=== PATIENT | female | born 1985 | race Hispanic/Latino ===

== ENCOUNTER 2023-08-20 13:57 | Emergency (ER) | payer OTHER, SELFPAY ==
[2023-08-20 13:57] VITALS: BMI 36.0
[2023-08-20 13:59] VITALS: BP 131/89
--- NOTE | 2023-08-20 14:44 | ED.GENMED ---
History of Present Illness
<Mary Huffman PA-C - Last Filed: 08/20/23 18:41>
General
Chief Complaint: Dizziness
Source: patient
Exam Limitations: none
Time Seen by Provider: 08/20/23 14:42
Nursing documentation reviewed up to this point in time: agreed with
Travel History
Have you had any contact with someone who has COVID-19?: No
Do you have any symptoms of coronavirus? Fever > 100 degrees, chills, cough, shortness of breath, sore throat, loss of taste or smell, muscle aches, or headache?: No
History of Present Illness
History of Present Illness:
This is a 38 y/o female with a PMH of hypothyroidism presenting to the emergency department today with dizziness that started yesterday morning. Patient states that when her symptoms started yesterday, she thought it was related to her not sleeping
all night before, however her symptoms persisted throughout the day and into today. Patient states that she describes a dizziness sensation as being intoxicated and also feels like she is unsteady on her feet. Patient states that she has never had
anything like this before. Patient states her symptoms worsen with movement or when she looks to her left or turns her head to the left. Patient also has a mild headache that started an hour ago. Patient denies any nausea or vomiting, chest pain,
shortness of breath, syncopal episodes. Patient denies any URI symptoms, cough. Patient denies any fevers or chills.
Review of Systems
<Mary Huffman PA-C - Last Filed: 08/20/23 18:41>
Review of Systems
All Other Systems: ROS reviewed and negative except as documented in HPI and ROS
Phy Exam
<Mary Huffman PA-C - Last Filed: 08/20/23 18:41>
Physical Exam
Physical Exam:
Vitals: Patient vital signs are stable
General: Patient is well-appearing, no acute distress
Skin: Warm skin dry, no rashes or lesions
Head: Normocephalic, atraumatic
Eyes: EOMs intact, no nystagmus. Sclera nonicteric.
Cardiac: Regular rate and rhythm, no murmurs
Pulm: Normal respiratory effort, no wheezes, rales, rhonchi
Abdomen: No abdominal tenderness
Neuro: AAOx3. CN II-XII. No focal neurologic deficits. Finger to nose, heel to shea testing intact.
Course
<Mary Huffman PA-C - Last Filed: 08/20/23 18:41>
Orders/Labs/Results
Orders:
Orders
08/20/23 14:03
EKG [Electrocardiogram (*1)] Urgent
Reason for Study: Vertigo / Dizzy
EKG- Treatment ONCE
08/20/23 15:13
Complete Blood Count/With Diff Urgent
Comprehensive Metabolic Panel Urgent
Free T4 Urgent
TSH Reflex To Free T4 Urgent
08/20/23 15:19
Acetaminophen [Tylenol] 650 mg PO NOW STA
08/20/23 15:30
Pt Eval And Treat Urgent
Activity Level: Ambulate
Abnormal Lab Results
08/20/23
15:13
MPV 11.8 H fL
(7.4-10.4)
Absolute Lymphs (auto) 4.1 H 10^3/uL
(1.2-3.4)
Absolute Monos (auto) 0.7 H 10^3/uL
(0.1-0.6)
Sodium 134 L mmol/L
(135-145)
TSH (Reflex) < 0.02 L uIU/ml
(0.47-4.68)
08/20/23 15:13
08/20/23 15:13
Vital Signs
Initial and Last Documented VS:
Initial Vital Signs
Temp Pulse Resp BP Pulse Ox
36.8 C 77 16 131/89 98
08/20/23 13:59 08/20/23 13:59 08/20/23 13:59 08/20/23 13:59 08/20/23 13:59
Last Documented Vital Signs
Temp Pulse Resp BP Pulse Ox
36.8 C 77 16 131/89 98
08/20/23 13:59 08/20/23 13:59 08/20/23 13:59 08/20/23 13:59 08/20/23 13:59
<Dorian Koch MD - Last Filed: 08/20/23 20:09>
Orders/Labs/Results
Orders:
Orders
08/20/23 14:03
EKG [Electrocardiogram (*1)] Urgent
Reason for Study: Vertigo / Dizzy
EKG- Treatment ONCE
08/20/23 15:13
Complete Blood Count/With Diff Urgent
Comprehensive Metabolic Panel Urgent
Free T4 Urgent
TSH Reflex To Free T4 Urgent
08/20/23 15:19
Acetaminophen [Tylenol] 650 mg PO NOW STA
08/20/23 15:30
Pt Eval And Treat Urgent
Activity Level: Ambulate
Abnormal Lab Results
08/20/23
15:13
MPV 11.8 H fL
(7.4-10.4)
Absolute Lymphs (auto) 4.1 H 10^3/uL
(1.2-3.4)
Absolute Monos (auto) 0.7 H 10^3/uL
(0.1-0.6)
Sodium 134 L mmol/L
(135-145)
TSH (Reflex) < 0.02 L uIU/ml
(0.47-4.68)
08/20/23 15:13
08/20/23 15:13
Vital Signs
Initial and Last Documented VS:
Initial Vital Signs
Temp Pulse Resp BP Pulse Ox
36.8 C 77 16 131/89 98
08/20/23 13:59 08/20/23 13:59 08/20/23 13:59 08/20/23 13:59 08/20/23 13:59
Last Documented Vital Signs
Temp Pulse Resp BP Pulse Ox
36.8 C 77 16 131/89 98
08/20/23 13:59 08/20/23 13:59 08/20/23 13:59 08/20/23 13:59 08/20/23 13:59
<Mary Huffman PA-C - Last Filed: 08/20/23 18:41>
MDM/Problems Addressed
Differential Diagnosis Includes:
Differentials include BPPV, vestibular neuritis, occipital migraine, CVA, anemia, arrhythmia,
MDM/Problems Addressed:
Dizziness
Chronic conditions affecting care:
Hypothyroidism, hypertension, prediabetes, PCOS
Acute Exacerbation and/or Progression of Chronic Illness:
Hypertension
<Mary Huffman PA-C - Last Filed: 08/20/23 18:41>
*Pulse Oximetry
Patient hypoxic: no
*Critical Care Note
Total Time (30-74mins, 75-104mins- exclusive of procedures): Not Applicable
Data Reviewed
Review of Other/Old Records Reveals: Records (No previous ER physician documentation) and Discharge Summary (No discharge summary in [facility] to review)
Source: patient
<Mary Huffman PA-C - Last Filed: 08/20/23 18:41>
Patient Management
Escalation/DeEscalation of care consider admission/obs:
This is a 38 y/o female with a PMH of hypothyroidism presenting to the emergency department today with dizziness that started yesterday morning. On exam, her neurological exam is unremarkable--she has no focal deficits and no nystagmus. Her EKG
demonstrates normal sinus rhythm. She is not anemic. Patient was evaluated by vestibular therapist and her symptoms resolved by the Cali maneuver. Patient feels well now. Patient was prescribed as clean as needed, patient agreement with plan.
Patient has a pamphlet for vestibular therapy follow-up. Patient stable for discharge.
ED Attending Note
<Mary Huffman PA-C - Last Filed: 08/20/23 18:41>
-
Portions of this chart may have been created with voice recognition software.� Occasional wrong word or��sound alike� substitutions may have occurred due to the inherent limitations of voice recognition software.
<Dorian Koch MD - Last Filed: 08/20/23 20:09>
ED Attending Note
Patient seen and examined by attending physician: Yes
ED Attending Note:
HPI: 38-year-old female presents to the emergency room for evaluation of dizziness. Patient reports she woke up with symptoms yesterday morning and they have been intermittent since that time. She reports symptoms seem to be triggered when she
turns her head towards the left. Somewhat better when she sits still. She reports a room spinning sensation and unsteadiness on her feet. She denies any nausea or vomiting. She denies any significant headache or neck pain. She denies any change
in her vision or speech. Denies any focal weakness or numbness in her extremities. She denies similar symptoms in the past. Denies recent illness. Denies head trauma.
ROS: Positive for dizziness; negative for headache, neck pain, vision change, speech change, focal weakness or numbness
Physical exam:
General: Awake, alert, oriented x3; no acute distress
Head: Normocephalic, atraumatic
Eyes: Conjunctiva normal, EOMI, pupils equal round and reactive to light bilaterally
Ears: TMs clear bilaterally
Throat: Airway intact, handling secretions
Neck: Trachea midline, supple without meningismus
Lungs: Clear to auscultation bilaterally, no wheezing, rales, rhonchi
Heart: Regular rate and rhythm, no murmurs, gallops, or rubs
Abd: Soft, non distended, nontender
Neuro: Cranial nerves intact 2 through 12, speech is fluid without dysarthria aphasia, no limb ataxia, motor and sensory function intact and symmetric proximally and distally in the upper and lower extremities
Skin: no rash
Extremities: No edema in extremities, equal pulses in all extremities
Differential diagnosis: BPPV, laryngitis, M�ni�re's disease, vestibular migraine; very low clinical suspicion for stroke or dissection
Medical decision makin-year-old female presents for evaluation of intermittent positional dizziness over the past 24 hours. Vitals normal, exam as above. Lab work sent off including a CBC and a CMP which were unremarkable. She did an EKG
which showed sinus rhythm no concerning changes. Suspect likely peripheral vertigo; she was seen by vestibular therapy here and Cali performed with significant improvement in her symptoms. Discharged with as needed meclizine and ENT referral.
Chronic conditions affecting care: N/A
Acute exacerbation or progression of chronic illness: N/A
History source: Patient, spouse
Data reviewed: N/A
Medications/testing considered: N/A
Social determinants of health: N/A
Discussion with other providers: Physical therapy
Discharge Plan
Departure
Patient Disposition: Home (Routine Discharge)
Date of Disposition: 08/20/23
Time of Disposition: 17:06
Patient with high blood pressure during this ER visit?: Yes
Condition: Good
Discharge Problem:
Vertigo
Instructions: Vertigo (a Type of Dizziness) (DC), BLOOD PRESSURE
Prescriptions:
New
meclizine 12.5 mg tablet
12.5 mg PO QID Qty: 20 0RF
Referrals:
Dorian Quiles MD [Active] -
Activity Restrictions/Additional Instructions:
We have sent Meclizine to your pharmacy. You can take one tablet every 6 hours as needed for dizziness.
Please return to the emergency department should you experience chest pain, shortness of breath, intractable headache, intractable vomiting, syncopal episodes, palpitations, or other concerning signs or symptoms.
Please follow up with your primary care provider. Please call for any concerns.
Interventions
Interventions:
*Risk Screen - Suicide Last Done: 08/20/23 13:59
*General Assessment Last Done: 08/20/23 13:59
*Neglect/Abuse Screening Last Done: 08/20/23 13:59
ED- Fall Risk Assessment Last Done: 08/20/23 15:16
*ED COVID-19 Vaccine History Last Done: 08/20/23 17:30
*Nursing Disposition Last Done: 08/20/23 17:30
ED- Neurological Assessment Last Done: 08/20/23 15:16
ED- Cardiac Assessment Last Done: 08/20/23 15:16
ED Swallowing Screen Last Done: 08/20/23 15:15
Discharge Date and Time
Discharge Date/Time: 08/20/23 17:32
Print Language: IRAQI
[2023-08-20] MEDS: TYLENOL 650 MG PO (15:22)
[2023-08-20 15:23] LABS: % Eosinophils 1.9 % (0-6); % Immature Granulocytes 0.4 % (0-0.5); % Lymphocytes 39.9 % (20.5-51.1); % Monocytes 7.1 % (1.7-9.3); % Neutrophils 49.7 % (42.2-75.2); Absolute Basophils 0.1 10^3/uL (0-0.2); Absolute Eosinophils 0.2 10^3/uL (0-0.7); Absolute Lymphocytes 4.1 10^3/uL (1.2-3.4); Absolute Monocytes 0.7 10^3/uL (0.1-0.6); Absolute Neutrophils 5.1 10^3/uL (1.4-6.5); Hematocrit 39.9 % (37.0-47.0); Hemoglobin 13.3 g/dL (12.0-16.0); Mean Corp Hgb Conc. 33.3 g/dL (33.0-37.0); Mean Corpuscular Hgb 27.6 pg (27.0-31.0); Mean Corpuscular Volume 82.8 fL (81.0-99.0); Mean Platelet Volume 11.8 fL (7.4-10.4); Nucleated Red Blood Cells % 0 %; Platelet Count 387 10^3/uL (130-400); Red Blood Cell Count 4.82 10^6/uL (4.20-5.40); Red Cell Dist. Width 13.2 % (11.5-14.5); White Blood Cell Count 10.3 10^3/uL (4.8-10.8)
[2023-08-20 15:35] LABS: ALT (SGPT) 17 U/L (0-35); AST (SGOT) 19 U/L (14-36); Albumin 4.4 g/dl (3.5-5.0); Alkaline Phosphatase 57 U/L (38-126); Blood Urea Nitrogen 15 mg/dl (7-17); Calcium 9.9 mg/dl (8.4-10.2); Carbon Dioxide 25 mmol/L (22-30); Chloride 103 mmol/L (98-107); Estimated Creatinine Clearance > 125 ml/min; Glucose 90 mg/dl (70-99); Potassium 4.3 mmol/L (3.5-5.1); Sodium 134 mmol/L (135-145); Total Bilirubin 0.3 mg/dl (0.2-1.3); Total Protein 6.9 g/dl (6.3-8.2); eGFR > 60.00
[2023-08-20 16:05] LABS: TSH Reflex To Free T4 < 0.02 uIU/ml (0.47-4.68)
[2023-08-20 17:00] LABS: Free T4 1.74 ng/dl (0.78-2.19)
== END 2023-08-20 17:32 | disposition home or self-care (01) ==
LOC: EMR 13:57
PROVIDERS: Physician Assistant; EMERGENCY PHYSICIAN Emergency Medicine
DX: R42 Dizziness and giddiness (principal); R26.81 Unsteadiness on feet; I10 Essential (primary) hypertension
CPT/HCPCS: 99284; 80053; 84439; 84443; 85025; 93005

== ENCOUNTER 2023-09-05 15:07 | Emergency (ER) | payer OTHER, SELFPAY ==
[2023-09-05 15:13] VITALS: BP 133/83; BMI 35.5
--- NOTE | 2023-09-05 17:16 | ED.GENMED ---
History of Present Illness
General
Chief Complaint: Extremity Pain (non-traumatic)
Source: patient
Exam Limitations: none
Time Seen by Provider: 09/05/23 16:20
Nursing documentation reviewed up to this point in time: agreed with
Travel History
Have you had any contact with someone who has COVID-19?: No
Do you have any symptoms of coronavirus? Fever > 100 degrees, chills, cough, shortness of breath, sore throat, loss of taste or smell, muscle aches, or headache?: No
History of Present Illness
History of Present Illness:
38 y/o F with L knee pain (medial) after a fall at work
pt says she works at [employer] and she was dealing with a resident who pulled her to the ground
she landed on her knee and says it was externally rotated
she was able to get up and walk but has had increasing pain since this morning
she has not had any other injuries, no head strike
nothing taken for pain
no bruising or wounds
Past History
Past History
ED Past Medical History: Cancer
Phy Exam
Physical Exam
Physical Exam:
GENERAL: Alert , in no apparent distress
NECK: Supple
CARDIAC: Regular rate and rhythm .
LUNGS: Clear breath sounds bilaterally, no acute respiratory distress, no wheezes/rales/rhonchi
NEUROLOGICAL: Alert and oriented, no focal neuro deficits
SKIN: Warm and dry,
msk: L knee mildly swollen, medial tenderness, able to flex knee normally, pain with varus and valgus stress; neg ant/post drawer sign
nontender ankle/hip
PSYCH: Normal and appropriate interaction.
Course
Orders/Labs/Results
Orders:
Orders
09/05/23 15:15
Knee, Left 4 or More Views [CR Knee - Left 4 Or More View*] Urgent
Comment:
Reason For Exam: pain
Vital Signs
Initial and Last Documented VS:
Initial Vital Signs
Temp Pulse Resp BP Pulse Ox
98 F 84 18 133/83 99
09/05/23 15:13 09/05/23 15:13 09/05/23 15:13 09/05/23 15:13 09/05/23 15:13
Last Documented Vital Signs
Temp Pulse Resp BP Pulse Ox
98 F 84 18 133/83 99
09/05/23 15:13 09/05/23 15:13 09/05/23 15:13 09/05/23 15:13 09/05/23 15:13
MDM/Problems Addressed
Differential Diagnosis Includes:
knee sprain, knee contusion, ligament injury
MDM/Problems Addressed:
38 y/o F with L knee pain after a fall when she was at work yesterday, where a client/patient pulled her down and she tiwsted her L knee
pain medially
mild effusion, no bruising, no wounds
full flex intact
pain with varus and valgus stress but not apreciated laxity
nv intact
able to walk with limp
xrays indep reviewed, neg
knee immobilizer
already been to [facility]
has appt for PT.
*Critical Care Note
Total Time (30-74mins, 75-104mins- exclusive of procedures): Not Applicable
ED Attending Note
-
Portions of this chart may have been created with voice recognition software.� Occasional wrong word or��sound alike� substitutions may have occurred due to the inherent limitations of voice recognition software.
Discharge Plan
Departure
Patient Disposition: Home (Routine Discharge)
Date of Disposition: 09/05/23
Time of Disposition: 16:58
Patient with high blood pressure during this ER visit?: No
Condition: Fair
Covid-19: Not Applicable
Discharge Problem:
Knee sprain
Instructions: Knee Sprain ED
Prescriptions:
No Action
meclizine 12.5 mg tablet
12.5 mg PO QID Qty: 20 0RF
Referrals:
Lien Whitlock CRNP [Family Provider] -
Activity Restrictions/Additional Instructions:
Wear the knee immobilizer while you are awake, you can take it off at night. Ice off-and-on. Take Tylenol and ibuprofen for pain as needed. Follow-up with [employer]. or orthopedics as needed. Return to the ER for any worsening symptoms like
severe pain, severe swelling or inability to walk
Interventions
Interventions:
*Risk Screen - Suicide Last Done: 09/05/23 15:13
*General Assessment Last Done: 09/05/23 16:42
*Neglect/Abuse Screening Last Done: 09/05/23 15:13
ED- Fall Risk Assessment Last Done: 09/05/23 17:10
*ED COVID-19 Vaccine History Last Done: 09/05/23 16:42
*Nursing Disposition Last Done: 09/05/23 17:10
ED-Skin Assessment Last Done: 09/05/23 16:42
ED-Musculoskeletal Assessment Last Done: 09/05/23 16:42
Discharge Date and Time
Discharge Date/Time: 09/05/23 17:12
Print Language: [id number]
== END 2023-09-05 17:12 | disposition home or self-care (01) ==
LOC: EMR 15:07
PROVIDERS: EMERGENCY PHYSICIAN Emergency Medicine; FAMILY PHYSICIAN Nurse Practitioner Adult Health
DX: S83.92XA Sprain of unspecified site of left knee, initial encounter (principal); W19.XXXA Unspecified fall, initial encounter; Y99.0 Civilian activity done for income or pay
CPT/HCPCS: 99283; 29505; 73564